=== PATIENT | male | born 1955 | race Caucasian/White ===

== ENCOUNTER 2020-01-29 09:05 | Inpatient (IN) | payer BC, OTHER ==
[~2020-01-29] VITALS: Ht 182.9 cm; Wt 124.8 kg
[2020-01-29 10:23] VITALS: BP 171/105
--- NOTE | 2020-01-29 11:46 | NUR ---
Patient arrives to this floor around 0945. As a direct admit with Dx Cellulitis to R+ hand, and CHF. V/S 97.7, HR 75, resp 18, BP 171/105. MD informed.
[2020-01-29] MEDS ORDERED: morphine 2 MG/ML inj. syringe IV PRN ×2 (11:55)
[2020-01-29] MEDS ORDERED: ondansetron/PF 4mg/2ml inj IV PRN (11:55)
[2020-01-29] MEDS ORDERED: acetaminophen 325mg tablet PO PRN (11:55)
[2020-01-29] MEDS ORDERED: mag hydrox/Alum hydrox/simeth 30ml oral suspension PO PRN (11:55)
[2020-01-29] MEDS ORDERED: magnesium hydroxide 30ml (MOM) UD suspension PO PRN (11:55)
[2020-01-29] MEDS: traMADol 50MG tablet PO PRN ×3 (12:51→23:50)
[2020-01-29 12:52] LABS: BASOPHILS % (AUTO) 0.5 % (0-1); EOSINOPHILS # (AUTO) 0.2 X10'3 (0-0.9); EOSINOPHILS % (AUTO) 2.1 % (0-6); HEMATOCRIT 37.3 % (42.0-52.0); HEMOGLOBIN 12.5 g/dl (14.0-17.9); LYMPHOCYTES % (AUTO) 26.2 % (21-51); MEAN CORPUSCULAR HGB CONC 33.4 g/dL (33.0-36.5); MEAN CORPUSCULAR VOLUME 92.8 FL (78-98); MEAN PLATELET VOLUME 9.6 FL (7.4-10.4); MONOCYTES # (AUTO) 1.4 X10'3 (0-0.9); MONOCYTES % (AUTO) 18.4 % (2-12); NEUTROPHILS # (AUTO) 4.1 X10'3 (1.8-7.7); NEUTROPHILS % (AUTO) 52.8 % (42-75); PLATELET COUNT 194 X10'3 (140-440); RED BLOOD COUNT 4.03 X10'6 (4.70-6.10); WHITE BLOOD COUNT 7.7 X10'3 (4.5-11.0)
[2020-01-29 13:08] LABS: ALANINE AMINOTRANSFERASE 19 U/L (12-78); ALBUMIN 3.6 G/DL (3.4-5.0); ALKALINE PHOSPHATASE 69 IU/L (46-116); ANION GAP 8 (8-16); ASPARTATE AMINO TRANSFERASE 26 U/L (10-37); BILIRUBIN,TOTAL 0.8 MG/DL (0.1-1.0); BLOOD UREA NITROGEN 21 MG/DL (7-18); BUN/CREATININE RATIO 17.9 (5.4-32.0); CALCIUM 9.2 MG/DL (8.5-10.1); CHLORIDE 102 MMOL/L (99-107); CHOL/HDL RATIO 2.9 (0.00-4.99); CHOLESTEROL 132 MG/DL (0-200); CREATININE 1.17 MG/DL (0.60-1.10); GLUCOSE 102 MG/DL (70-104); HDL CHOLESTEROL 46 MG/DL (35-60); LDL CHOLESTEROL 74 MG/DL (50-100); POTASSIUM 3.9 MMOL/L (3.5-5.1); SODIUM 137 MMOL/L (135-145); TOTAL CARBON DIOXIDE 26.8 MMOL/L (24-32); TOTAL PROTEIN 7.3 G/DL (6.4-8.2); TRIGLYCERIDES 81 MG/DL (20-135); eGFR 63 ML/MIN
[2020-01-29 13:18] LABS: TOTAL CELLS COUNTED 100
[2020-01-29 13:23] LABS: PLATELET ESTIMATE NORMAL; TOXIC GRANULATION 1+; TOXIC VACUOLATION FEW
[2020-01-29 13:24] LABS: ELLIPTOCYTES FEW; POLYCHROMASIA FEW; STOMATOCYTES 1+
[2020-01-29] MEDS: ceFAZolin 1GM/D5W- ADD-VANTAGE 50 ML IV SCH ×2 (14:02→17:19)
[2020-01-29] MEDS ORDERED: LEVO50TA PO (14:51)
[2020-01-29] MEDS ORDERED: CLOP75TA15 PO (14:51)
[2020-01-29] MEDS ORDERED: FURO40TA4 PO (14:51)
[2020-01-29] MEDS ORDERED: ATOR40TA PO (14:51)
[2020-01-29] MEDS ORDERED: LISI2.5T2 PO (14:51)
[2020-01-29] MEDS ORDERED: CARV3.12 PO (14:51)
[2020-01-29] MEDS ORDERED: LORA-269 PO (14:51)
[2020-01-29] MEDS ORDERED: LORA2TAB96 PO (14:51)
[2020-01-29] MEDS: furosemide 20 MG/2 ML vial IV SCH (15:07)
[2020-01-29] MEDS ORDERED: iohexol 350MG/ML 100ml bottle IV ONE (15:24)
[2020-01-29] MEDS: LORazepam 1 MG tablet PO SCH ×2 (15:59→23:51)
--- NOTE | 2020-01-29 17:41 | NUR ---
pt sometime sees shadows and spots with both eyes Addendum: 01/29/20 at 1755 by Elizabeth Reyes RN Amended: Links added.
[2020-01-29 18:00] VITALS: BP 179/108
--- NOTE | 2020-01-29 19:07 | NUR ---
Problems reprioritized. Patient report given, questions answered & plan of care reviewed with GALINA Bose. Pt A&O x4. C/O pain and swelling to right hand. PRN pain med given x2 and ABX IV x2. swelling to right hand has increased since admit, MD contacted.
[2020-01-29] MEDS: piperacillin/tazo 3.375gm/50ml 50 ML IV SCH (19:29)
[2020-01-29] MEDS: carVEDilol 3.125mg tablet PO SCH (19:49)
[2020-01-29] MEDS ORDERED: vancomycin/NS 1 GM ADD-VANTAGE 250 ML IV ONE (20:20)
--- NOTE | 2020-01-29 20:51 | NUR ---
PHONE CALL TO HEIDI MESA FOR NEURO/TELE CONSULT, IMAGES REQUESTED PRIOR TO INTERVIEW WITH PATIENT. CONTACTED OUR CT DEPT AND REQUESTED IMAGES BE PUSHED OVER TO FOC. ANDERS SENDING IMAGES REQUESTED.
[2020-01-29] MEDS ORDERED: hydrALAZINE 20mg/ml inj. IV PRN (22:15)
[2020-01-29 22:30] VITALS: BP 170/107
[2020-01-29] MEDS: lisinopril 5mg tablet PO SCH (22:36)
[2020-01-29 23:45] VITALS: BP 138/94
[2020-01-30 04:00] VITALS: BP 147/92
[2020-01-30 04:53] LABS: BASOPHILS % (AUTO) 0.4 % (0-1); EOSINOPHILS # (AUTO) 0.2 X10'3 (0-0.9); EOSINOPHILS % (AUTO) 3.3 % (0-6); HEMATOCRIT 34.3 % (42.0-52.0); HEMOGLOBIN 11.5 g/dl (14.0-17.9); LYMPHOCYTES # (AUTO) 1.4 X10'3 (1.1-4.8); LYMPHOCYTES % (AUTO) 20.1 % (21-51); MEAN CORPUSCULAR HEMOGLOBIN 31.1 PG (27.0-31.0); MEAN CORPUSCULAR HGB CONC 33.5 g/dL (33.0-36.5); MEAN CORPUSCULAR VOLUME 92.7 FL (78-98); MEAN PLATELET VOLUME 9.2 FL (7.4-10.4); MONOCYTES # (AUTO) 1.2 X10'3 (0-0.9); MONOCYTES % (AUTO) 17.1 % (2-12); NEUTROPHILS % (AUTO) 59.1 % (42-75); PLATELET COUNT 189 X10'3 (140-440); WHITE BLOOD COUNT 6.8 X10'3 (4.5-11.0)
[2020-01-30 05:25] LABS: PLATELET ESTIMATE NORMAL; TOTAL CELLS COUNTED 100
[2020-01-30 05:26] LABS: ELLIPTOCYTES FEW; POLYCHROMASIA FEW
[2020-01-30 05:37] LABS: ALANINE AMINOTRANSFERASE 16 U/L (12-78); ALBUMIN/GLOBULIN RATIO 0.9 (1.1-1.5); ALKALINE PHOSPHATASE 57 IU/L (46-116); ANION GAP 10 (8-16); ASPARTATE AMINO TRANSFERASE 14 U/L (10-37); BILIRUBIN,TOTAL 0.3 MG/DL (0.1-1.0); BLOOD UREA NITROGEN 22 MG/DL (7-18); BUN/CREATININE RATIO 20.2 (5.4-32.0); CALCIUM 8.6 MG/DL (8.5-10.1); CHLORIDE 103 MMOL/L (99-107); CHOL/HDL RATIO 2.9 (0.00-4.99); CHOLESTEROL 117 MG/DL (0-200); CREATININE 1.09 MG/DL (0.60-1.10); GLUCOSE 128 MG/DL (70-104); HDL CHOLESTEROL 41 MG/DL (35-60); LDL CHOLESTEROL 64 MG/DL (50-100); POTASSIUM 3.7 MMOL/L (3.5-5.1); SODIUM 138 MMOL/L (135-145); TOTAL CARBON DIOXIDE 24.9 MMOL/L (24-32); TOTAL PROTEIN 6.4 G/DL (6.4-8.2); TRIGLYCERIDES 59 MG/DL (20-135); eGFR 68 ML/MIN
[2020-01-30] MEDS: traMADol 50MG tablet PO PRN ×3 (05:41→20:12)
[2020-01-30 06:00] VITALS: BP 147/92
[2020-01-30] MEDS ORDERED: lisinopril 2.5mg tablet PO SCH (08:00)
[2020-01-30] MEDS: VANCOMYCIN 1,500MG inj. 1,500 MG in normal saline 500ml IV soln 500 ML IV SCH ×2 (08:26→20:12)
[2020-01-30] MEDS: aspirin 325mg tablet, delayed-release (Ecotrin) PO SCH (09:26)
[2020-01-30] MEDS: atorvastatin 20mg tablet PO SCH (09:26)
[2020-01-30] MEDS: clopidogrel 75mg tablet PO SCH (09:27)
[2020-01-30] MEDS: carVEDilol 3.125mg tablet PO SCH ×2 (09:27→20:06)
[2020-01-30] MEDS: furosemide 20 MG/2 ML vial IV SCH (09:27)
[2020-01-30] MEDS: levoTHYROXINE 25mcg tablet PO SCH (09:27)
[2020-01-30] MEDS: lisinopril 5mg tablet PO SCH (09:27)
[2020-01-30] MEDS: LORazepam 1 MG tablet PO SCH ×2 (09:36→17:04)
[2020-01-30 10:00] VITALS: BP 126/75
[2020-01-30] MEDS ORDERED: prednisone 10mg tablet PO ONE (10:35)
[2020-01-30] MEDS: piperacillin/tazo 3.375gm/50ml 50 ML IV SCH ×2 (12:02→17:04)
[2020-01-30] MEDS: pantoprazole 40mg Tablet.DR PO SCH (14:24)
[2020-01-30] MEDS: lactobacillus rhamnosus 10,000 MMU CELLS/CAPSULE PO SCH (14:25)
--- NOTE | 2020-01-30 16:54 | NUR ---
Encouraged patient to maintain right hand elevation secondary to edema.
[2020-01-30 18:00] VITALS: BP 169/104
[2020-01-30 22:00] VITALS: BP 160/104
[2020-01-31] VITALS (7 sets, daily range): BP systolic 132–226; BP diastolic 75–141
[2020-01-31] MEDS: piperacillin/tazo 3.375gm/50ml 50 ML IV SCH ×2 (00:03→09:51)
[2020-01-31] MEDS: LORazepam 1 MG tablet PO SCH ×3 (00:43→17:07)
[2020-01-31] MEDS: traMADol 50MG tablet PO PRN ×3 (01:44→20:13)
[2020-01-31] MEDS: lisinopril 5mg tablet PO SCH ×2 (05:38→07:47)
[2020-01-31 06:09] LABS: BASOPHILS % (AUTO) 0.4 % (0-1); EOSINOPHILS # (AUTO) 0.1 X10'3 (0-0.9); EOSINOPHILS % (AUTO) 0.8 % (0-6); HEMATOCRIT 37.1 % (42.0-52.0); HEMOGLOBIN 12.5 g/dl (14.0-17.9); LYMPHOCYTES # (AUTO) 1.5 X10'3 (1.1-4.8); MEAN CORPUSCULAR HEMOGLOBIN 30.9 PG (27.0-31.0); MEAN CORPUSCULAR HGB CONC 33.6 g/dL (33.0-36.5); MEAN CORPUSCULAR VOLUME 92.1 FL (78-98); MEAN PLATELET VOLUME 9.1 FL (7.4-10.4); MONOCYTES # (AUTO) 1.2 X10'3 (0-0.9); MONOCYTES % (AUTO) 15.3 % (2-12); NEUTROPHILS # (AUTO) 4.9 X10'3 (1.8-7.7); NEUTROPHILS % (AUTO) 64.5 % (42-75); PLATELET COUNT 259 X10'3 (140-440); RED BLOOD COUNT 4.03 X10'6 (4.70-6.10); RED CELL DISTRIBUTION WIDTH 15.2 % (11.5-14.5); WHITE BLOOD COUNT 7.7 X10'3 (4.5-11.0)
[2020-01-31 06:24] LABS: ALANINE AMINOTRANSFERASE 20 U/L (12-78); ALBUMIN 3.3 G/DL (3.4-5.0); ALBUMIN/GLOBULIN RATIO 0.8 (1.1-1.5); ALKALINE PHOSPHATASE 55 IU/L (46-116); ANION GAP 10 (8-16); ASPARTATE AMINO TRANSFERASE 17 U/L (10-37); BILIRUBIN,TOTAL 0.4 MG/DL (0.1-1.0); BLOOD UREA NITROGEN 19 MG/DL (7-18); BUN/CREATININE RATIO 17.4 (5.4-32.0); CALCIUM 9.3 MG/DL (8.5-10.1); CHLORIDE 104 MMOL/L (99-107); CREATININE 1.09 MG/DL (0.60-1.10); GLUCOSE 108 MG/DL (70-104); POTASSIUM 4.2 MMOL/L (3.5-5.1); SODIUM 139 MMOL/L (135-145); TOTAL CARBON DIOXIDE 24.8 MMOL/L (24-32); TOTAL PROTEIN 7.2 G/DL (6.4-8.2); eGFR 68 ML/MIN
[2020-01-31] MEDS: carVEDilol 3.125mg tablet PO SCH (07:46)
[2020-01-31] MEDS: levoTHYROXINE 25mcg tablet PO SCH (07:46)
[2020-01-31] MEDS: pantoprazole 40mg Tablet.DR PO SCH (07:46)
[2020-01-31] MEDS: aspirin 325mg tablet, delayed-release (Ecotrin) PO SCH (07:46)
[2020-01-31] MEDS: VANCOMYCIN 1,500MG inj. 1,500 MG in normal saline 500ml IV soln 500 ML IV SCH (07:46)
[2020-01-31] MEDS: clopidogrel 75mg tablet PO SCH (07:47)
[2020-01-31] MEDS: atorvastatin 20mg tablet PO SCH (07:47)
[2020-01-31] MEDS: lactobacillus rhamnosus 10,000 MMU CELLS/CAPSULE PO SCH (07:47)
[2020-01-31] MEDS ORDERED: predniSONE 20 mg tablet PO ONE (09:50)
[2020-01-31] MEDS: furosemide 20 MG/2 ML vial IV SCH (10:05)
[2020-01-31] MEDS: amox tr/potassium clavulanate 875/125mg TAB PO SCH ×2 (13:54→22:02)
[2020-01-31] MEDS ORDERED: VANCOMYCIN LEVEL IV ONE (19:30)
[2020-01-31] MEDS: carvedilol 6.25mg tablet PO SCH (20:14)
[2020-01-31] MEDS: acetaminophen 325mg tablet PO PRN (21:45)
[2020-02-01] MEDS: LORazepam 1 MG tablet PO SCH ×2 (01:21→09:51)
[2020-02-01] MEDS: traMADol 50MG tablet PO PRN ×2 (05:11→09:51)
[2020-02-01 06:00] VITALS: BP 156/99
[2020-02-01 06:31] LABS: BASOPHILS % (AUTO) 0.7 % (0-1); EOSINOPHILS # (AUTO) 0.1 X10'3 (0-0.9); EOSINOPHILS % (AUTO) 1.4 % (0-6); HEMATOCRIT 36.6 % (42.0-52.0); HEMOGLOBIN 12.1 g/dl (14.0-17.9); LYMPHOCYTES # (AUTO) 1.9 X10'3 (1.1-4.8); LYMPHOCYTES % (AUTO) 27.8 % (21-51); MEAN CORPUSCULAR HGB CONC 33.2 g/dL (33.0-36.5); MEAN CORPUSCULAR VOLUME 93.4 FL (78-98); MEAN PLATELET VOLUME 9.3 FL (7.4-10.4); MONOCYTES # (AUTO) 0.6 X10'3 (0-0.9); MONOCYTES % (AUTO) 8.1 % (2-12); NEUTROPHILS # (AUTO) 4.2 X10'3 (1.8-7.7); PLATELET COUNT 271 X10'3 (140-440); RED BLOOD COUNT 3.92 X10'6 (4.70-6.10); RED CELL DISTRIBUTION WIDTH 15.3 % (11.5-14.5); WHITE BLOOD COUNT 6.8 X10'3 (4.5-11.0)
[2020-02-01 06:53] LABS: ALANINE AMINOTRANSFERASE 41 U/L (12-78); ALBUMIN 3.1 G/DL (3.4-5.0); ALBUMIN/GLOBULIN RATIO 0.8 (1.1-1.5); ALKALINE PHOSPHATASE 53 IU/L (46-116); ANION GAP 8 (8-16); ASPARTATE AMINO TRANSFERASE 35 U/L (10-37); BILIRUBIN,TOTAL 0.3 MG/DL (0.1-1.0); BLOOD UREA NITROGEN 22 MG/DL (7-18); BUN/CREATININE RATIO 21.2 (5.4-32.0); CALCIUM 9.4 MG/DL (8.5-10.1); CHLORIDE 105 MMOL/L (99-107); CREATININE 1.04 MG/DL (0.60-1.10); GLUCOSE 128 MG/DL (70-104); POTASSIUM 3.9 MMOL/L (3.5-5.1); SODIUM 140 MMOL/L (135-145); TOTAL CARBON DIOXIDE 27.2 MMOL/L (24-32); TOTAL PROTEIN 6.8 G/DL (6.4-8.2); eGFR 72 ML/MIN
[2020-02-01] MEDS: levoTHYROXINE 25mcg tablet PO SCH (07:13)
[2020-02-01] MEDS: atorvastatin 20mg tablet PO SCH (07:13)
[2020-02-01] MEDS: carvedilol 6.25mg tablet PO SCH (07:13)
[2020-02-01] MEDS: lactobacillus rhamnosus 10,000 MMU CELLS/CAPSULE PO SCH (07:13)
[2020-02-01] MEDS: clopidogrel 75mg tablet PO SCH (07:13)
[2020-02-01] MEDS: furosemide 20 MG/2 ML vial IV SCH (07:13)
[2020-02-01] MEDS: pantoprazole 40mg Tablet.DR PO SCH (07:13)
[2020-02-01] MEDS: lisinopril 5mg tablet PO SCH (09:51)
[2020-02-01] MEDS: amox tr/potassium clavulanate 875/125mg TAB PO SCH (09:52)
[2020-02-01 10:00] VITALS: BP 145/82
[2020-02-01] MEDS ORDERED: CLOP75TA15 PO (12:28)
[2020-02-01] MEDS ORDERED: AMOX-580 PO (12:28)
[2020-02-01] MEDS ORDERED: LORA2TAB96 PO (12:28)
[2020-02-01] MEDS ORDERED: FURO40TA4 PO (12:28)
[2020-02-01] MEDS ORDERED: LEVO50TA PO (12:28)
[2020-02-01] MEDS ORDERED: INDO-12 PO (12:28)
[2020-02-01] MEDS ORDERED: ATOR40TA PO (12:28)
[2020-02-01] MEDS ORDERED: LISI-642 PO (12:28)
[2020-02-01] MEDS ORDERED: CARV6.253 PO (12:28)
[2020-02-01] MEDS ORDERED: POTA-82 PO (12:28)
[2020-02-01] MEDS ORDERED: ALLO100T25 PO (12:28)
[2020-02-01] MEDS: acetaminophen 325mg tablet PO PRN (12:45)
== END 2020-02-01 14:40 | disposition home or self-care (01) | DRG 603 ==
LOC: ORTHO 4S 10:33
PROVIDERS: ADMIT Internal Medicine; ATTEND Internal Medicine
DX: L03.113 Cellulitis of right upper limb (principal); I50.22 Chronic systolic (congestive) heart failure; E03.9 Hypothyroidism, unspecified; F12.90 Cannabis use, unspecified, uncomplicated; H54.61 Unqualified visual loss, right eye, normal vision left eye; G47.30 Sleep apnea, unspecified; I65.03 Occlusion and stenosis of bilateral vertebral arteries; I65.1 Occlusion and stenosis of basilar artery; M10.9 Gout, unspecified; I11.0 Hypertensive heart disease with heart failure; I27.81 Cor pulmonale (chronic); Z79.02 Long term (current) use of antithrombotics/antiplatelets; Z85.46 Personal history of malignant neoplasm of prostate; Z86.711 Personal history of pulmonary embolism; Z86.73 Personal history of transient ischemic attack (TIA), and cerebral infarction without residual deficits; Z79.899 Other long term (current) drug therapy
CPT/HCPCS: 36415; 70498; 70551; 80053; 80061; 83036; 83880; 84443; 84550; 85025; 85651; 87081; 93306; 93922; 94660; 94760; G0378; J0360; J0690; J1940; J2270; J2543; J3370; J7040; J7512; Q9967

== ENCOUNTER 2021-08-28 13:01 | Emergency (ER) | payer MEDICARE, MEDICAID ==
[~2021-08-28] VITALS: Ht 182.9 cm; Wt 90.9 kg
[~2021-08-28 13:01] MED LIST: ALLO100T25 PO; AMOX-580 PO; ATOR40TA PO; CARV6.253 PO; CLOP75TA15 PO; FURO40TA4 PO; INDO-12 PO; LEVO50TA PO; LISI-642 PO; LORA2TAB96 PO; POTA-82 PO
[2021-08-28 13:10] VITALS: BP 128/79
[2021-08-28] MEDS ORDERED: albuterol 2.5 MG/3 ML nebule NEB ONE (13:35)
[2021-08-28] MEDS ORDERED: NEBU1KIT3 MC (14:43)
[2021-08-28] MEDS ORDERED: ALB0.5UD IH (14:43)
[2021-08-29] MEDS ORDERED: BENZ-38 PO (17:56)
[2021-08-29] MEDS ORDERED: DET2LAC PO (17:56)
[2021-08-29] MEDS ORDERED: ALB0.5UD IH (18:00)
== END 2021-08-28 14:52 | disposition home or self-care (01) ==
LOC: ER 13:01
DX: J06.9 Acute upper respiratory infection, unspecified (principal); Z20.822 Contact with and (suspected) exposure to COVID-19; R09.89 Other specified symptoms and signs involving the circulatory and respiratory systems; R05.9 Cough, unspecified; R07.89 Other chest pain; I11.0 Hypertensive heart disease with heart failure; I50.9 Heart failure, unspecified; Z79.2 Long term (current) use of antibiotics; Z79.899 Other long term (current) drug therapy
CPT/HCPCS: 71045; 87635; 94640; 99284; C9803; 94760

== ENCOUNTER 2022-11-07 15:46 | Emergency (ER) | payer MEDICARE, MEDICAID ==
[~2022-11-07] VITALS: Ht 188 cm; Wt 159.0 kg
[~2022-11-07 15:46] MED LIST changes: +NEBU1KIT3 MC
[2022-11-07 16:19] LABS: HEMATOCRIT 43.2 % (42.0-52.0); MEAN CORPUSCULAR VOLUME 93.3 FL (78-98); MEAN PLATELET VOLUME 10.2 FL (7.4-10.4); RED BLOOD COUNT 4.63 X10'6 (4.70-6.10); RED CELL DISTRIBUTION WIDTH 15.2 % (11.5-14.5)
[2022-11-07 16:22] LABS: BASOPHILS # (AUTO) 0.1 X10'3 (0-0.2); BASOPHILS % (AUTO) 0.6 % (0-1); EOSINOPHILS # (AUTO) 0.3 X10'3 (0-0.9); EOSINOPHILS % (AUTO) 2.9 % (0-6); HEMOGLOBIN 14.1 g/dl (14.0-17.9); LYMPHOCYTES # (AUTO) 1.9 X10'3 (1.1-4.8); LYMPHOCYTES % (AUTO) 18.8 % (21-51); MEAN CORPUSCULAR HEMOGLOBIN 30.5 PG (27.0-31.0); MEAN CORPUSCULAR HGB CONC 32.7 g/dL (33.0-36.5); MONOCYTES # (AUTO) 0.7 X10'3 (0-0.9); MONOCYTES % (AUTO) 6.6 % (2-12); NEUTROPHILS # (AUTO) 7.1 X10'3 (1.8-7.7); NEUTROPHILS % (AUTO) 71.1 % (42-75); PLATELET COUNT 192 X10'3 (140-440)
[2022-11-07 16:25] LABS: ALANINE AMINOTRANSFERASE 45 U/L (12-78); ALBUMIN/GLOBULIN RATIO 1.3 (1.1-1.5); ALKALINE PHOSPHATASE 94 IU/L (46-116); ANION GAP 10 (8-16); ASPARTATE AMINO TRANSFERASE 21 U/L (10-37); BILIRUBIN,TOTAL 0.4 MG/DL (0.1-1.0); BLOOD UREA NITROGEN 38 MG/DL (7-18); BUN/CREATININE RATIO 26.4 (5.4-32.0); CHLORIDE 100 MMOL/L (99-107); CREATININE 1.44 MG/DL (0.60-1.10); GLUCOSE 170 MG/DL (70-104); POTASSIUM 4.3 MMOL/L (3.5-5.1); SODIUM 140 MMOL/L (135-145); TOTAL CARBON DIOXIDE 30.4 MMOL/L (24-32); TOTAL PROTEIN 7.2 G/DL (6.4-8.2); eGFR 49 ML/MIN
[2022-11-07 16:34] LABS: MAGNESIUM 1.7 MG/DL (1.5-2.4)
[2022-11-07 18:26] LABS: CLARITY,URINE CLEAR (Clear); COLOR,URINE YELLOW (Yellow); GLUCOSE, URINE NEGATIVE (Neg); KETONES,URINE NEGATIVE (Neg); LEUKOCYTE ESTERASE ,URINE NEGATIVE (Neg); NITRITES, URINE NEGATIVE (Neg); OCCULT BLOOD,URINE NEGATIVE (Neg); PROTEIN,URINE NEGATIVE (Neg); UROBILINOGEN,URINE 0.2 E.U/dL (0.2-1.0)
[2022-11-07 18:29] LABS: UA COLLECTION TYPE NON-SPECIFIED
[2022-11-07 18:53] LABS: ABG HCO3 26.2 mmol/L (22.0-26.0); ABG OXYGEN SATURATION 95.9 % (94-97); ABG PO2 (T) 78.9 mmHg (75.0-100.0); ALLEN'S TEST POSITIVE; FMetHb 0.3 % (0.0-1.5); FO2Hb 94.7 % (94-97); PATIENT TEMPERATURE 36.2; TOTAL HEMOGLOBIN 14.6 G/dl (14.0-17.9)
[2022-11-07 19:14] VITALS: BP 145/86
== END 2022-11-07 19:16 | disposition home or self-care (01) ==
LOC: ER 15:46
DX: Z72.3 Lack of physical exercise (principal); I11.0 Hypertensive heart disease with heart failure; I50.9 Heart failure, unspecified; M19.90 Unspecified osteoarthritis, unspecified site; G89.29 Other chronic pain
CPT/HCPCS: 36415; 36600; 71045; 74176; 80053; 81003; 82803; 83735; 83880; 84145; 84443; 84484; 85018; 85025; 93005; 99285

== ENCOUNTER 2022-11-28 10:20 | Outpatient (CLI) | payer MEDICARE, MEDICAID ==
[2022-11-28] MEDS ORDERED: iohexol 350MG/ML 100ml bottle IV ONE (10:34)
--- NOTE | 2022-11-28 12:00 | NUR ---
notified Dr. Dickinson's office that pt was not brought to short stay for hydration. pt had CT and discharged without coming to short stay, or short stay being notified that the pt was here.
== END 2022-11-28 23:59 | disposition home or self-care (01) ==
LOC: RAD 10:20
PROVIDERS: ATTEND Internal Medicine Cardiovascular Disease
DX: K76.0 Fatty (change of) liver, not elsewhere classified (principal); N62 Hypertrophy of breast; I70.0 Atherosclerosis of aorta; I25.10 Atherosclerotic heart disease of native coronary artery without angina pectoris; J84.10 Pulmonary fibrosis, unspecified; J98.4 Other disorders of lung; R06.02 Shortness of breath; R91.1 Solitary pulmonary nodule; K76.89 Other specified diseases of liver; J98.11 Atelectasis; K82.8 Other specified diseases of gallbladder; M47.814 Spondylosis without myelopathy or radiculopathy, thoracic region
CPT/HCPCS: 71275; J3490; Q9967; J7030